=== PATIENT | female | born 1995 | race Native Hawaiian/Other Pacific Islander ===

== ENCOUNTER 2017-10-11 14:37 | Emergency (ER) | payer SELFPAY ==
[2017-10-11 15:01] VITALS: BP 110/77; PULSE 84; RESP 17; TEMP 97.1; O2SAT 99
--- NOTE | 2017-10-11 15:15 | C.PDOC ---
Time Seen by Provider: 10/11/17 15:12 Chief Complaint (Nursing): Abnormal Skin Integrity Past Medical History Vital Signs: Last Vital Signs Temp 97.1 F L 10/11/17 14:59 Pulse 84 10/11/17 14:59 Resp 17 10/11/17 14:59 BP 110/77 10/11/17 14:59 Pulse Ox 99 10/11/17 14:59 - Social History Hx Alcohol Use: No Hx Substance Use: No - Immunization History Hx Tetanus Toxoid Vaccination: No Hx Influenza Vaccination: No Hx Pneumococcal Vaccination: No ED Course And Treatment O2 Sat by Pulse Oximetry: 99 Disposition - Disposition
--- NOTE | 2017-10-11 15:21 | C.PDOC ---
History Of Present Illness 22 year old female presents to the ED c/o left upper eye lid mass that has been going since yesterday. Patient states she feels the mass is inside the too of her upper left eyelid alongside some local pain. Patient denies visual changes, eye ball pain, blurry vision, eye discharge. Time Seen by Provider: 10/11/17 15:12 Chief Complaint (Nursing): Abnormal Skin Integrity History Per: Patient History/Exam Limitations: no limitations Onset/Duration Of Symptoms: Days Current Symptoms Are (Timing): Still Present Injury To Eye?: No Severity: None Quality: "Pain" Wears Contact Lens?: No Associated Symptoms: Swelling Recent travel outside of the [place]: No Additional History Per: Patient Past Medical History Reviewed: Historical Data, Nursing Documentation, Vital Signs Vital Signs: Last Vital Signs Temp 97.1 F L 10/11/17 14:59 Pulse 84 10/11/17 14:59 Resp 17 10/11/17 14:59 BP 110/77 10/11/17 14:59 Pulse Ox 99 10/11/17 15:31 - Medical History PMH: No Chronic Diseases Surgical History: No Surg Hx Family History: States: Unknown Family Hx - Social History Hx Alcohol Use: No Hx Substance Use: No - Immunization History Hx Tetanus Toxoid Vaccination: No Hx Influenza Vaccination: No Hx Pneumococcal Vaccination: No Review Of Systems Constitutional: Negative for: Fever, Chills Eyes: Positive for: Eyelid Inflammation. Negative for: Vision Change Cardiovascular: Negative for: Chest Pain Respiratory: Negative for: Cough, Shortness of Breath Gastrointestinal: Negative for: Nausea, Vomiting, Abdominal Pain Skin: Negative for: Rash Neurological: Negative for: Weakness, Numbness, Headache Physical Exam - Physical Exam Appears: Non-toxic, No Acute Distress Skin: Normal Color, Warm, Dry Head: Atraumatic, Normacephalic Eye(s): bilateral: PERRL, EOMI, right: Normal Inspection, left: Other ( hordeolum medial aspect of left upper eyelid, no periorbital edema or redness) Nose: No Discharge, No Deformity Neurological/Psych: Oriented x3, Normal Speech, Normal Cognition Gait: Steady ED Course And Treatment O2 Sat by Pulse Oximetry: 99 (On RA) Pulse Ox Interpretation: Normal Medical Decision Making Medical Decision Making: Impression : hordeolum on the left upper eyelid. Disposition Counseled Patient/Family Regarding: Diagnosis, Need For Followup, Rx Given - Disposition Referrals: Camron Gamez MD [Staff Provider] - Disposition: HOME/ ROUTINE Disposition Time: 15:20 Condition: GOOD Additional Instructions: warm compresses and massages of the lesions for 10 minutes 4 times per day Prescriptions: Bacitracin [Bacitracin Opht OINT] 1 applic OD Q4 #1 tube Instructions: Jaleesa (ED) Forms: [employer] (Kiswahili) - Clinical Impression Clinical Impression: Stye - Scribe Statement The provider has reviewed the documentation as recorded by the Scribe Chao Ramos All medical record entries made by the Scribe were at my direction and personally dictated by me. I have reviewed the chart and agree that the record accurately reflects my personal performance of the history, physical exam, medical decision making, and the department course for this patient. I have also personally directed, reviewed, and agree with the discharge instructions and disposition.
--- NOTE | 2017-10-11 15:25 | C.PDOC ---
History Of Present Illness 22 year old female presents to the ED c/o left upper eye lid mass that has been going since yesterday. Patient states she feels the mass is inside the too of her upper left eyelid alongside some local pain. Patient denies visual changes, eye ball pain, blurry vision, eye discharge. Time Seen by Provider: 10/11/17 15:12 Chief Complaint (Nursing): Abnormal Skin Integrity History Per: Patient History/Exam Limitations: no limitations Onset/Duration Of Symptoms: Days Current Symptoms Are (Timing): Still Present Injury To Eye?: No Quality: "Pain" Wears Contact Lens?: No Associated Symptoms: Swelling Recent travel outside of the [place]: No Additional History Per: Patient Past Medical History Reviewed: Historical Data, Nursing Documentation, Vital Signs Vital Signs: Last Vital Signs Temp 97.1 F L 10/11/17 14:59 Pulse 84 10/11/17 14:59 Resp 17 10/11/17 14:59 BP 110/77 10/11/17 14:59 Pulse Ox 99 10/11/17 15:21 - Medical History PMH: No Chronic Diseases Surgical History: No Surg Hx Family History: States: Unknown Family Hx - Social History Hx Alcohol Use: No Hx Substance Use: No - Immunization History Hx Tetanus Toxoid Vaccination: No Hx Influenza Vaccination: No Hx Pneumococcal Vaccination: No Review Of Systems Constitutional: Negative for: Fever, Chills Eyes: Positive for: Eyelid Inflammation. Negative for: Vision Change Cardiovascular: Negative for: Chest Pain, Palpitations Respiratory: Negative for: Cough, Shortness of Breath Gastrointestinal: Negative for: Nausea, Vomiting, Abdominal Pain Skin: Negative for: Rash Neurological: Negative for: Weakness, Numbness, Headache Physical Exam - Physical Exam Appears: Non-toxic, No Acute Distress Skin: Normal Color, Warm, Dry Head: Atraumatic, Normacephalic Eye(s): bilateral: PERRL, EOMI, right: Normal Inspection, left: Other ( hordeolum medial aspect of left upper eyelid, no periorbital edema or redness) Nose: No Discharge, No Deformity Neurological/Psych: Oriented x3, Normal Speech, Normal Cognition Gait: Steady ED Course And Treatment O2 Sat by Pulse Oximetry: 99 (On RA) Pulse Ox Interpretation: Normal Medical Decision Making Medical Decision Making: Impression : hordeolum on the left upper eyelid. Disposition - Disposition Referrals: Camron Gamez MD [Staff Provider] - Disposition: HOME/ ROUTINE Additional Instructions: warm compresses and massages of the lesions for 10 minutes 4 times per day Prescriptions: Bacitracin [Bacitracin Opht OINT] 1 applic OD Q4 #1 tube Instructions: Stye (ED) Forms: [employer] (Russian) - Clinical Impression Clinical Impression: Stye - Scribe Statement The provider has reviewed the documentation as recorded by the Scribe Chao Ramos All medical record entries made by the Scribe were at my direction and personally dictated by me. I have reviewed the chart and agree that the record accurately reflects my personal performance of the history, physical exam, medical decision making, and the department course for this patient. I have also personally directed, reviewed, and agree with the discharge instructions and disposition.
== END 2017-10-11 15:25 | disposition home or self-care (01) ==
LOC: C.ER 14:37
DX: H00.024 Hordeolum internum left upper eyelid (principal)